=== PATIENT | male | born 1985 ===

== ENCOUNTER 2018-11-13 02:47 | Emergency (ER) | payer BC ==
[2018-11-13 03:01] VITALS: BP 150/73
[2018-11-13] MEDS ORDERED: Sodium Chloride 0.9% 10 ML Syringe FLUSH PRN (03:11)
[2018-11-13] MEDS ORDERED: Ondansetron 4 MG/2 ML SDV IVPUSH ONE (03:11)
[2018-11-13] MEDS ORDERED: Ketorolac 30 MG/ML SDV IVPUSH ONE (03:11)
[2018-11-13] MEDS ORDERED: HYDROmorphone 1 MG/ML Syringe IVPUSH ONE (03:12)
[2018-11-13] MEDS ORDERED: Sodium Chloride 0.9% 1,000 ML IV SCH (03:15)
--- NOTE | 2018-11-13 03:18 | EDM.PDOC ---
ED HPI GENERAL MEDICAL PROBLEM - General Chief Complaint: Abdominal Pain Stated Complaint: ABDOMINAL PAIN Time Seen by Provider: 11/13/18 03:10 Source of Information: Reports: Patient History Limitations: Reports: No Limitations - History of Present Illness INITIAL COMMENTS - FREE TEXT/NARRATIVE: The patient presents with right flank and right sided abdominal pain with nausea and vomiting. This all started yesterday. He vomited before arrival and in the room again. He has no history of kidney stones. He still has his gallbladder and appendix. He has no fever, chills, cough, congestion, chest pain or shortness of breath. Onset: Sudden Duration: Day(s): Location: Reports: Abdomen, Back Quality: Reports: Sharp Severity: Severe Improves with: Reports: None Worsens with: Reports: None Associated Symptoms: Reports: Nausea/Vomiting. Denies: Chest Pain, Cough, Fever /Chills, Headaches, Shortness of Breath Right Abdomen Pain Score (Numeric/FACES): 10 - Related Data Allergies Allergy/AdvReac Type Severity Reaction Status Date / Time Penicillins Allergy Hives Verified 11/13/18 03:01 Home Meds: Home Meds Multivitamin [Multi-Vitamin Daily] 1 tab PO DAILY 07/09/15 [History] Past Medical History - Past Health History Medical/Surgical History: Denies Medical/Surgical History Genitourinary History: Reports: Renal Calculus - Past Surgical History Musculoskeletal Surgical History: Reports: Other (See Below) ED ROS GENERAL - Review of Systems Review Of Systems: See Below Constitutional: Reports: No Symptoms HEENT: Reports: No Symptoms Respiratory: Reports: No Symptoms Cardiovascular: Reports: No Symptoms Endocrine: Reports: No Symptoms GI/Abdominal: Reports: Abdominal Pain, Nausea, Vomiting. Denies: Diarrhea : Reports: Flank Pain (Right). Denies: Dysuria Musculoskeletal: Reports: Back Pain ED EXAM, RENAL/ - Physical Exam Exam: See Below Exam Limited By: No Limitations General Appearance: Alert, No Apparent Distress Ears: Normal External Exam Nose: Normal Inspection Head: Atraumatic, Normocephalic Neck: Normal Inspection Respiratory/Chest: No Respiratory Distress, Lungs Clear, Normal Breath Sounds Cardiovascular: Regular Rate, Rhythm, No Edema, No Murmur GI/Abdominal: Soft, Non-Tender, No Organomegaly, No Mass Back Exam: CVA Tenderness (R) Extremities: Normal Inspection Neurological: Alert, Oriented, No Motor/Sensory Deficits Course - Vital Signs Last Recorded V/S: Last Vital Signs Temp 96.0 F 11/13/18 02:58 Pulse 65 11/13/18 02:58 Resp 22 H 11/13/18 02:58 BP 150/73 H 11/13/18 02:58 Pulse Ox 100 11/13/18 02:58 - Orders/Labs/Meds Orders: Active Orders 24 hr Category Date Time Status Peripheral IV Care [RC] . DIRECTED Care 11/13/18 03:11 Active Abdomen Pelvis wo Cont [CT] Stat Exams 11/13/18 03:11 Taken Sodium Chloride 0.9% [Normal Saline] 1,000 ml Med 11/13/18 03:15 Active IV ASDIRECTED Sodium Chloride 0.9% [Saline Flush] Med 11/13/18 03:11 Active 10 ml FLUSH ASDIRECTED PRN ED Antiemetic Medication Reflex [OM.PC] Stat Oth 11/13/18 03:11 Ordered Peripheral IV Insertion Adult [OM.PC] Stat Oth 11/13/18 03:11 Ordered Medication Orders Sodium Chloride (Normal Saline) 1,000 mls @ 125 mls/hr IV ASDIRECTED CHELSI Last Admin: 11/13/18 03:42 Dose: 125 mls/hr Sodium Chloride (Saline Flush) 10 ml FLUSH ASDIRECTED PRN PRN Reason: Keep Vein Open Last Admin: 11/13/18 03:25 Dose: 10 ml Labs: Laboratory Tests 11/13/18 11/13/18 11/13/18 Range/Units 03:05 03:15 03:15 WBC 11.35 H (4.23-9.07) K/mm3 RBC 5.41 (4.63-6.08) M/mm3 Hgb 15.9 D (13.7-17.5) gm/L Hct 45.1 (40.1-51.0) % MCV 83.4 (79.0-92.2) fl MCH 29.4 (25.7-32.2) pg MCHC 35.3 (32.2-35.5) g/dl RDW Std Deviation 40.8 (35.1-43.9) fL Plt Count 317 (163-337) K/mm3 MPV 10.2 (9.4-12.3) fl Neut % (Auto) 77.8 H (34.0-67.9) % Lymph % (Auto) 12.3 L (21.8-53.1) % [place] % (Auto) 9.0 (5.3-12.2) % Eos % (Auto) 0.5 L (0.8-7.0) Baso % (Auto) 0.2 (0.1-1.2) % Neut # (Auto) 8.83 H (1.78-5.38) K/mm3 Lymph # (Auto) 1.40 (1.32-3.57) K/mm3 [place] # (Auto) 1.02 H (0.30-0.82) K/mm3 Eos # (Auto) 0.06 (0.04-0.54) K/mm3 Baso # (Auto) 0.02 (0.01-0.08) K/mm3 Sodium 141 (136-145) mEq/L Potassium 4.0 (3.5-5.1) mEq/L Chloride 105 (98-107) mEq/L Carbon Dioxide 25 (21-32) mEq/L Anion Gap 15.0 (5-15) BUN 20 H (7-18) mg/dL Creatinine 1.7 H (0.7-1.3) mg/dL Est Cr Clr Drug Dosing 75.25 mL/min Estimated GFR (MDRD) 47 (>60) mL/min BUN/Creatinine Ratio 11.8 L (14-18) Glucose 118 H (74-106) mg/dL Calcium 9.1 (8.5-10.1) mg/dL Total Bilirubin 0.5 (0.2-1.0) mg/dL AST 22 (15-37) U/L ALT 30 (16-63) U/L Alkaline Phosphatase 89 (46-116) U/L Total Protein 7.9 (6.4-8.2) g/dl Albumin 4.3 (3.4-5.0) g/dl Globulin 3.6 gm/dL Albumin/Globulin Ratio 1.2 (1-2) Lipase 78 (73-393) U/L Urine Color Dark yellow (Yellow) Urine Appearance Turbid H (Clear) Urine pH 5.0 (5.0-8.0) Ur Specific [place] > or = 1.030 (1.005-1.030) Urine Protein 1+ H (Negative) Urine Glucose (UA) Negative (Negative) Urine Ketones 1+ H (Negative) Urine Occult Blood Trace-lysed H (Negative) Urine Nitrite Negative (Negative) Urine Bilirubin Negative (Negative) Urine Urobilinogen 0.2 (0.2-1.0) Ur Leukocyte Esterase Negative (Negative) Urine RBC 0-5 (0-5) /hpf Urine WBC Not seen (0-5) /hpf Ur Squamous Epith Cells 0-5 (0-5) /hpf Calcium Oxalate Crystal Few H (NONE) Amorphous Sediment Many H (NOT SEEN) /hpf Urine Bacteria Rare (FEW) /hpf Urine Mucus Moderate H (FEW) /hpf Meds: Medications Generic Name Dose Route Start Last Admin Trade Name Freq PRN Reason Stop Dose Admin Sodium Chloride 1,000 mls @ 125 mls/hr 11/13/18 03:15 11/13/18 03:42 Normal Saline IV 125 mls/hr ASDIRECTED CHELSI Administration Sodium Chloride 10 ml 11/13/18 03:11 11/13/18 03:25 Saline Flush FLUSH 10 ml ASDIRECTED PRN Administration Keep Vein Open Discontinued Medications Generic Name Dose Route Start Last Admin Trade Name Freq PRN Reason Stop Dose Admin Hydromorphone HCl 1 mg 11/13/18 03:12 11/13/18 03:23 Dilaudid IVPUSH 11/13/18 03:13 1 mg ONETIME ONE Administration Ketorolac Tromethamine 30 mg 11/13/18 03:11 11/13/18 03:22 Toradol IVPUSH 11/13/18 03:12 30 mg ONETIME ONE Administration Ondansetron HCl 4 mg 11/13/18 03:11 11/13/18 03:20 Zofran IVPUSH 11/13/18 03:12 4 mg ONETIME ONE Administration - Re-Assessments/Exams Free Text/Narrative Re-Assessment/Exam: 11/13/18 03:17 I ordered an IV NS at 125ml/hr, zofran 4mg IV, dilaudid 1mg IV, labs, UA and a CT of his abdomen and pelvis without contrast to look for a kidney stone. 11/13/18 04:23 His WBC is slightly elevated at 11.35. His creatinine is elevated at 1.7. His GFR is 47. His UA shows no UTI but he does have blood. His CT shows a 2mm right UVJ stone causing mild hydronephrosis. 11/13/18 04:29 He feels better. I will discharge him home with some hydrocodone and flomax. Departure - Departure Time of Disposition: 04:30 Disposition: Home, Self-Care 01 Condition: Good Clinical Impression: Kidney stone on right side, Ureteral colic, Ureteral calculus, right, Renal insufficiency - Discharge Information *PRESCRIPTION DRUG MONITORING PROGRAM REVIEWED*: No *COPY OF PRESCRIPTION DRUG MONITORING REPORT IN PATIENT AARON: No Referrals: PCP,None [Primary Care Provider] - Jozef Wang MD [Physician] - 1 Week Jose Dawn PA-C [Physician Variety Lathe Operator] - 1 Week Forms: ED Department Discharge Additional Instructions: Drink plenty of water. Take flomax daily. Take motrin or aleve for pain. If that does not help, take hydrocodone for pain. Please return if you are worse. If you have not passed the stone in a week please follow up with Dr Wang a urologist in [place]. Follow up with Jose Dawn in out clinic to recheck your kidneys. - My Orders Last 24 Hours: My Active Orders 11/13/18 03:11 Peripheral IV Care [RC] . DIRECTED Abdomen Pelvis wo Cont [CT] Stat Sodium Chloride 0.9% [Saline Flush] 10 ml FLUSH ASDIRECTED PRN ED Antiemetic Medication Reflex [OM.PC] Stat Peripheral IV Insertion Adult [OM.PC] Stat 11/13/18 03:15 Sodium Chloride 0.9% [Normal Saline] 1,000 ml IV ASDIRECTED - Assessment/Plan Last 24 Hours: My Active Orders 11/13/18 03:11 Peripheral IV Care [RC] . DIRECTED Abdomen Pelvis wo Cont [CT] Stat Sodium Chloride 0.9% [Saline Flush] 10 ml FLUSH ASDIRECTED PRN ED Antiemetic Medication Reflex [OM.PC] Stat Peripheral IV Insertion Adult [OM.PC] Stat 11/13/18 03:15 Sodium Chloride 0.9% [Normal Saline] 1,000 ml IV ASDIRECTED
--- NOTE | 2018-11-13 06:51 | CT ---
CT abdomen Technique: Multiple axial sections were obtained from above the dome of the diaphragm inferiorly through the pubic symphysis. Intravenous and oral contrast was not utilized. Study has been performed as a ureteral stone protocol. Comparison: Prior renal stone protocol CT exam of 12/19/14. Findings: Right ureter is mildly prominent. Slight inflammatory change is seen around the right proximal ureter. These findings are caused by 3.5 mm obstructing stone within the distal right ureter located at the UVJ. No other abnormal calcifications are seen along the course of the ureters. No abnormal calcifications are seen within the kidneys. Other findings: Small portion of the visualized lung bases are clear. Noncontrast appearance of the liver appears within normal limits. Spleen appears within normal limits. Adrenal glands contain no nodules. Pancreas is within normal limits. Gallbladder contains no calcified gallstones. Aorta shows no aneurysm. No retroperitoneal adenopathy or mesenteric abnormalities are seen. Appendix is seen which is normal in size. No pelvic mass or adenopathy is appreciated. No free fluid is seen. Minimal degenerative change scattered within the spine. Impression: 1. 3.5 mm obstructing stone within the distal right ureter at the UVJ causing mild proximal hydronephrosis. 2. Other incidental findings as noted above. Diagnostic code #3 I agree with preliminary report from [facility], finalized on 11/13/18, 5:05 AM Central Time
== END 2018-11-13 05:00 | disposition home or self-care (01) ==
LOC: JD.ED 02:47
DX: N13.2 Hydronephrosis with renal and ureteral calculous obstruction (principal); N28.9 Disorder of kidney and ureter, unspecified; Z88.0 Allergy status to penicillin
CPT/HCPCS: 36415; 74176; 80053; 81001; 83690; 85025; 96361; 96374; 96375; 99284; J1170; J1885; J2405; J7040